=== PATIENT | male | born 1985 | race Native Hawaiian/Other Pacific Islander ===

== ENCOUNTER 2022-10-06 20:05 | Emergency (ER) | payer OTHER ==
[~2022-10-06] VITALS: Ht 185.4 cm; Wt 70.3 kg
[2022-10-06 20:40] LABS: PLATELET COUNT 218 K/uL (142-355)
[2022-10-07] MEDS ORDERED: BENZTROPINE2 MG PO (08:56)
[2022-10-07] MEDS ORDERED: DIVALPROEX500 M1 PO (09:02)
[2022-10-07] MEDS ORDERED: FAMO20TA4 PO (09:04)
[2022-10-07] MEDS ORDERED: GABA300C2 PO (09:05)
[2022-10-07] MEDS ORDERED: HALO10TA5 PO (09:06)
[2022-10-07] MEDS ORDERED: MAGN400T4 PO (09:07)
[2022-10-07] MEDS ORDERED: POLYETHYLE17 GM/SCO1 PO (09:09)
[2022-10-07] MEDS ORDERED: RISP2TAB2 PO (09:10)
[2022-10-07] MEDS ORDERED: SODI1TAB PO (09:13)
[2022-10-07] MEDS ORDERED: [UNRECOGNIZED DRUG - OTHER] RE (09:15)
[2022-10-07] MEDS ORDERED: CALCIUM 500 + D1 TAB PO (09:16)
== END 2022-10-06 22:07 | disposition other institution (70) ==
LOC: ED 20:05
PROVIDERS: Family Medicine
DX: N39.0 Urinary tract infection, site not specified (principal); R44.0 Auditory hallucinations; R44.1 Visual hallucinations; Z11.52 Encounter for screening for COVID-19; Z04.6 Encounter for general psychiatric examination, requested by authority
CPT/HCPCS: 80053; 81000; 85027; 87086; 87088; 87635; 93005; 99283; U0003

== ENCOUNTER 2022-10-11 06:06 | Emergency (ER) | payer OTHER ==
[~2022-10-11] VITALS: Ht 190.5 cm; Wt 65.8 kg
[2022-10-11 06:06] VITALS: TEMP 97.8
[~2022-10-11 06:06] MED LIST: BENZTROPINE2 MG PO; CALCIUM 500 + D1 TAB PO; DIVALPROEX500 M1 PO; FAMO20TA4 PO; GABA300C2 PO; HALO10TA5 PO; MAGN400T4 PO; POLYETHYLE17 GM/SCO1 PO; RISP2TAB2 PO; SODI1TAB PO; [UNRECOGNIZED DRUG - OTHER] RE
[2022-10-11 06:47] LABS: PLATELET COUNT 215 K/uL (142-355)
[2022-10-11 06:55] LABS: POTASSIUM 4.3 mmol/L (3.6-5.2)
[2022-10-11 08:30] VITALS: BP 105/72
== END 2022-10-11 09:27 | disposition still patient (30) ==
LOC: ED 06:06
PROVIDERS: Emergency Medicine
DX: E87.1 Hypo-osmolality and hyponatremia (principal); E83.42 Hypomagnesemia
CPT/HCPCS: 36415; 80053; 81002; 82150; 83690; 83735; 85027; 96361; 96365; 99284; J3475